=== PATIENT | female | born 1985 | race Caucasian/White ===

== ENCOUNTER 2016-12-01 10:58 | Outpatient (CLI) | payer OTHER ==
[~2016-12-01] VITALS: Ht 162.6 cm; Wt 130.0 kg
[~2016-12-01 10:58] MED LIST: ACET325T26 PO; PREN1TAB52 PO
[2016-12-01 11:24] VITALS: BP 124/66
[2016-12-01 11:52] LABS: HEMATOCRIT 40.5 % (34.6-47.8); HEMOGLOBIN 13.8 g/dL (11.7-16.4); WHITE BLOOD COUNT 9.6 x10^3/uL (3.4-10)
[2016-12-01 12:06] LABS: ASPARTATE AMINO TRANSFERASE 9 U/L (15-37); BLOOD UREA NITROGEN 9 mg/dL (7-18)
== END 2016-12-01 13:00 | disposition home or self-care (01) ==
LOC: LDOP 10:58
PROVIDERS: ATTEND Obstetrics & Gynecology
DX: O11.3 Pre-existing hypertension with pre-eclampsia, third trimester (principal); Z3A.36 36 weeks gestation of pregnancy
CPT/HCPCS: 36415; 59025; 80053; 81003; 82248; 82570; 84156; 84550; 85025; 99201; G0463